=== PATIENT | male | born 1950 | race Caucasian/White ===

== ENCOUNTER 2018-08-10 06:08 | Day surgery (SDC) | payer MEDICARE, BC ==
[2018-08-10] VITALS (11 sets, daily range): BP systolic 90–136; BP diastolic 59–78
[~2018-08-10] VITALS: Ht 177.8 cm; Wt 83.6 kg
[2018-08-10] MEDS ORDERED: diphenhydrAMINE 25mg capsule PO PRN (06:25)
[2018-08-10] MEDS ORDERED: sod bicarbonate 150mEq in D5W 1,150 ML IV ONE (06:25)
[2018-08-10] MEDS ORDERED: ATOR80TA PO (06:34)
[2018-08-10] MEDS ORDERED: CLOP75TA15 PO (06:34)
[2018-08-10] MEDS ORDERED: PANT20TA3 PO (06:34)
[2018-08-10] MEDS ORDERED: NITR0.4T51 SL (06:34)
[2018-08-10] MEDS ORDERED: AMIT25TA10 PO (06:34)
[2018-08-10] MEDS ORDERED: ASPI-1265 PO (06:34)
[2018-08-10] MEDS: normal saline 1000ml 1,000 ML IV SCH ×2 (07:00→07:30)
[2018-08-10 07:17] LABS: BASOPHILS % (AUTO) 0.4 % (0-1); EOSINOPHILS # (AUTO) 0.1 X10'3 (0-0.9); EOSINOPHILS % (AUTO) 1.6 % (0-6); HEMATOCRIT 39.8 % (42.0-52.0); HEMOGLOBIN 13.3 g/dl (14.0-17.9); LYMPHOCYTES % (AUTO) 23.2 % (21-51); MEAN CORPUSCULAR HGB CONC 33.4 % (33.0-36.5); MEAN CORPUSCULAR VOLUME 89.8 FL (78-98); MEAN PLATELET VOLUME 9.3 FL (7.4-10.4); MONOCYTES # (AUTO) 0.6 X10'3 (0-0.9); MONOCYTES % (AUTO) 7.5 % (2-12); NEUTROPHILS # (AUTO) 5.8 X10'3 (1.8-7.7); NEUTROPHILS % (AUTO) 67.3 % (42-75); PLATELET COUNT 194 X10'3 (140-440); RED BLOOD COUNT 4.43 X10'6 (4.70-6.10); RED CELL DISTRIBUTION WIDTH 13.8 % (11.5-14.5); WHITE BLOOD COUNT 8.6 X10'3 (4.5-11.0)
[2018-08-10 07:20] LABS: ALBUMIN 3.7 G/DL (3.4-5.0); ANION GAP 11 (8-16); BLOOD UREA NITROGEN 16 MG/DL (7-18); BUN/CREATININE RATIO 15.4 (5.4-32.0); CALCIUM 8.5 MG/DL (8.5-10.1); CHLORIDE 105 MMOL/L (99-107); CREATININE 1.04 MG/DL (0.60-1.10); GLUCOSE 94 MG/DL (70-104); MAGNESIUM 1.9 MG/DL (1.5-2.4); POTASSIUM 3.7 MMOL/L (3.5-5.1); SODIUM 141 MMOL/L (135-145); TOTAL CARBON DIOXIDE 25.5 MMOL/L (24-32); eGFR 71 ML/MIN
[2018-08-10 07:28] LABS: PROTHROMBIN TIME 9.9 SECONDS (9.0-12.0)
[2018-08-10] MEDS ORDERED: LIDOcaine 1% (10mg/ml)w/preservative injection 20ml MDV ONE (07:28)
[2018-08-10] MEDS ORDERED: fentaNYL/PF 50MCG/1 ML 2ML syringe ONE (07:28)
[2018-08-10] MEDS ORDERED: midazolam 2 mg/2 ml injection ONE ×2 (07:28→07:59)
[2018-08-10] MEDS ORDERED: iohexol 350 MG/ML 50ML vial IV ONE (07:29)
[2018-08-10] MEDS ORDERED: iohexol 350MG/ML 100ml bottle IV ONE (07:29)
[2018-08-10] MEDS ORDERED: heparin 1,000unit/ml 10ml vial 10 ML ONE (08:19)
[2018-08-10] MEDS ORDERED: clopidogrel 300mg tablet ONE (08:42)
[2018-08-10] MEDS ORDERED: ketorolac trometh. 30mg/ml inj. IV SCH (09:35)
[2018-08-10] MEDS ORDERED: nitroGLYCERIN 0.4mg SUBLingual tab SL PRN (09:45)
[2018-08-10] MEDS ORDERED: amitriptyline 25mg tablet PO SCH (21:00)
[2018-08-10] MEDS ORDERED: atorvastatin 20mg tablet PO SCH (21:00)
[2018-08-11] MEDS ORDERED: pantoprazole 40mg Tablet.DR PO SCH (07:30)
[2018-08-11] MEDS ORDERED: clopidogrel 75mg tablet PO SCH (08:00)
[2018-08-11] MEDS ORDERED: aspirin 325mg tablet PO SCH (08:00)
== END 2018-08-10 14:00 | disposition home or self-care (01) ==
LOC: SSTAY O 06:08
PROVIDERS: ATTEND Internal Medicine Cardiovascular Disease
DX: I25.708 Atherosclerosis of coronary artery bypass graft(s), unspecified, with other forms of angina pectoris (principal); I25.2 Old myocardial infarction; I10 Essential (primary) hypertension; E78.5 Hyperlipidemia, unspecified; K21.9 Gastro-esophageal reflux disease without esophagitis; M19.90 Unspecified osteoarthritis, unspecified site; Z79.01 Long term (current) use of anticoagulants; Z87.442 Personal history of urinary calculi; Z72.89 Other problems related to lifestyle; Z87.2 Personal history of diseases of the skin and subcutaneous tissue; Z95.1 Presence of aortocoronary bypass graft; Z95.5 Presence of coronary angioplasty implant and graft; Z79.82 Long term (current) use of aspirin; Z85.038 Personal history of other malignant neoplasm of large intestine; Z90.49 Acquired absence of other specified parts of digestive tract; Z92.21 Personal history of antineoplastic chemotherapy; Z98.890 Other specified postprocedural states; Z79.899 Other long term (current) drug therapy; Z83.6 Family history of other diseases of the respiratory system; Z82.1 Family history of blindness and visual loss; Z84.1 Family history of disorders of kidney and ureter; Z82.49 Family history of ischemic heart disease and other diseases of the circulatory system
CPT/HCPCS: 36415; 80048; 83735; 85025; 85610; 92920; 93458; 99152; 99153; A6257; C1760; C1874; C9600; J1644; J1885; J2001; J2250; J3010; J7030; Q0163; Q9967; 92921; A4620; C1725; C1769; C1894